=== PATIENT | female | born 1990 | race Caucasian/White ===

== ENCOUNTER 2016-04-25 10:54 | Emergency (ER) | payer MEDICAID ==
[~2016-04-25] VITALS: Ht 154.9 cm; Wt 118.0 kg
[~2016-04-25 10:54] MED LIST: LORA-474 PO; METF500T PO; MUPI2OIN TOPICAL; PREG25 PO; SERT-132 PO; SULF1TAB23 PO
[2016-04-25 10:57] VITALS: BP 142/87; PULSE 72; RESP 15; TEMP 98; O2SAT 98
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
[2016-04-25 12:28] VITALS: BP 122/61; PULSE 64; RESP 16; TEMP 98.5; O2SAT 94
[2016-04-25 12:55] LABS: AUTOMATED NEUTROPHIL # 5.9 TH/MM3 (1.8-7.7); BASOPHIL # 0.1 TH/MM3 (0-0.2); EOSINOPHIL # 0.2 TH/MM3 (0-0.4); EOSINOPHIL % 2.6 % (0.0-4.0); HEMATOCRIT 43.2 % (35.0-46.0); HEMO FLAGS DIFF FINAL; LYMPHOCYTE # 2.3 TH/MM3 (1.0-4.8); MEAN CELL VOLUME 90.5 FL (80.0-100.0); MEAN CORPUSCULAR HEMOGLOBIN 30.3 PG (27.0-34.0); MEAN CORPUSCULAR HGB CONC 33.5 % (32.0-36.0); MONO % 7.6 % (0.0-8.0); NEUT % 63.8 % (16.0-70.0); PLATELET COUNT 245 TH/MM3 (150-450); RED BLOOD COUNT 4.78 MIL/MM3 (4.00-5.30); RED CELL DISTRIBUTION WIDTH 12.9 % (11.6-17.2); WHITE BLOOD COUNT 9.3 TH/MM3 (4.0-11.0)
[2016-04-25 13:03] LABS: ANION GAP 7 MEQ/L (5-15); BICARBONATE 29.7 MEQ/L (21.0-32.0); BLOOD UREA NITROGEN 6 MG/DL (7-18); CHLORIDE 105 MEQ/L (98-107); GLOMERULAR FILTRATION RATE 100 ML/MIN (>89); POTASSIUM 3.6 MEQ/L (3.5-5.1); SODIUM (NA) 142 MEQ/L (136-145)
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
[2016-04-25 14:46] LABS: AMPHETAMINE, URINE NEG (NEG); BARBITURATES, URINE NEG (NEG); COCAINE, URINE NEG (NEG)
[2016-04-25] MEDS ORDERED: LORA-474 PO (17:30)
[2016-04-28] MEDS ORDERED: CLOT1CRE6 TOPICAL (13:59)
[2016-04-28] MEDS ORDERED: ACE-33 (14:01)
[2016-04-28] MEDS ORDERED: TYLETAB34 PO (14:11)
[2016-05-23] MEDS ORDERED: TERB250T4 PO (09:41)
[2016-07-05] MEDS ORDERED: ONDA4TAB7 SL (09:48)
[2016-07-15] MEDS ORDERED: PYRI25TA2 PO (10:51)
[2016-07-15] MEDS ORDERED: UNIS25TA2 PO (10:51)
[2016-07-15] MEDS ORDERED: ZANT150T2 PO (11:00)
[2016-07-21] MEDS ORDERED: PROC10TA PO (10:38)
[2016-08-15] MEDS ORDERED: ZOFR8TAB PO (16:05)
[2016-08-17] MEDS ORDERED: DEXA4TAB PO (11:58)
[2016-08-17] MEDS ORDERED: DEXA4INJ9 IM (11:59)
[2016-09-20] MEDS ORDERED: METR500T10 PO (12:21)
[2016-09-20] MEDS ORDERED: PRENTAB60 (15:46)
== END 2016-04-25 15:22 | disposition home or self-care (01) ==
LOC: NEPJ 10:54
DX: F43.23 Adjustment disorder with mixed anxiety and depressed mood (principal); F12.90 Cannabis use, unspecified, uncomplicated
CPT/HCPCS: 80048; 80307; 80320; 84703; 85025; 99283

== ENCOUNTER 2016-07-13 11:35 | Emergency (ER) | payer MEDICAID ==
[~2016-07-13] VITALS: Ht 154.9 cm; Wt 115.0 kg
[~2016-07-13 11:35] MED LIST changes: +ACE-33; -LORA-474 PO; -METF500T PO; -MUPI2OIN TOPICAL; +ONDA4TAB7 SL; -PREG25 PO; -SERT-132 PO; -SULF1TAB23 PO
[2016-07-13 11:37] VITALS: BP 125/70; PULSE 98; RESP 20; TEMP 98.5; O2SAT 100
--- NOTE | 2016-07-13 11:46 | PD ---
Physical Exam Date Seen by Provider: Jul 13, 2016 Time Seen by Provider: 11:42 Narrative Pt is a 25 year old female presenting to the ED with abdominal cramping. Pt is approximately 8 weeks . No vaginal spotting or discharge. Pt denies any urinary symptoms. A3. Pt has been seen by prestidigitator at [facility]. Pt with hx of premature labor. PMHx significant for lupus. Pt reports pain 10/10 and states it's cramping in nature. VSS, awaiting bed placement. Data Data Last Documented VS Vital Signs Date Time Temp Pulse Resp B/P Pulse Ox O2 Delivery O2 Flow Rate FiO2 07/13/16 11:37 98.5 98 20 125/70 100 Room Air MDM Supervised Visit with ROMAN: Adriana Ying Jul 13, 2016 11:46
--- NOTE | 2016-07-13 13:35 | PD ---
HPI Chief Complaint: Related Problem Time Seen by Provider: 13:27 Travel History International Travel<30 days: No Contact w/Intl Traveler<30days: No Traveled to known affect area: No History of Present Illness HPI The patient was seen and examined in the presence of the nurse. This patient is complaining of low central pelvic cramping. Duration 2 days. Severity is mild to moderate. No bleeding or discharge or fever. She is recently found out she is . She estimates about a week's. She does have care , has not had an ultrasound. PFSH Past Medical History Anxiety: Yes Diminished Hearing: No Genitourinary: Yes (UTI 05/01/11) Immune Disorder: Yes (LUPUS) Reproductive: Yes Immunizations Current: Yes Tetanus Vaccination: > 5 Years Influenza Vaccination: No ?: LMP: APRIL : 5 Para: 2 Miscarriage: 3 : 0 Past Surgical History Section: Yes (X 2) Gynecologic Surgery: Yes (C/SECTION X 2 ) Tonsillectomy: Yes Other Surgery: Yes (LEFT LEG SURGERY- MRSA 16 YEARS OLD) Social History Alcohol Use: Yes (RARELY ) Tobacco Use: Yes (1/2 PPD) Substance Use: Yes (MARIJUANA - last smoked 3x days ago. ) Allergies-Medications (Allergen,Severity, Reaction): Coded Allergies: Gabapentin (Verified Adverse Reaction, Mild, Mouth Sores, 07/13/16) Per pt. Reported Meds & Prescriptions Reported Meds & Active Scripts Active No Active Prescriptions or Reported Medications Review of Systems General / Constitutional: No: Fever Eyes: No: Visual changes HENT: No: Headaches Cardiovascular: No: Chest Pain or Discomfort Respiratory: No: Shortness of Breath Gastrointestinal: No: Abdominal Pain Genitourinary: Positive: Pelvic Pain, No: Dysuria Musculoskeletal: No: Pain Skin: No Rash Neurologic: No: Weakness Psychiatric: No: Depression Endocrine: No: Polydipsia Hematologic/Lymphatic: No: Easy Bruising Physical Exam Narrative GENERAL: Well-nourished, well-developed patient in no apparent distress. SKIN: Focused skin assessment reveals no rash and nodules. Skin is Warm and dry. HEAD: Atraumatic. Normocephalic. EYES: Pupils equal and round. No scleral icterus. No injection or drainage. ENT: No nasal bleeding or discharge. Mucous membranes pink and moist. NECK: Trachea midline. No JVD. CARDIOVASCULAR: Regular rate and rhythm. No murmur appreciated. RESPIRATORY: No accessory muscle use. Clear to auscultation. Breath sounds equal bilaterally. GASTROINTESTINAL: Abdomen soft, obese, non-tender, nondistended. Hepatic and splenic margins not palpable. MUSCULOSKELETAL: No obvious deformities. No clubbing. No cyanosis. No edema. NEUROLOGICAL: Awake and alert. No obvious cranial nerve deficits. Motor grossly within normal limits. Normal speech. PSYCHIATRIC: Appropriate mood and affect; insight and judgment normal. Data Data Last Documented VS Vital Signs Date Time Temp Pulse Resp B/P Pulse Ox O2 Delivery O2 Flow Rate FiO2 07/13/16 13:23 17 07/13/16 11:37 98.5 98 125/70 100 Room Air Orders Urinalysis - C+S If Indicated (07/13/16 13:27) Labs Laboratory Tests Test 07/13/16 13:30 Urine Color YELLOW Urine Turbidity CLEAR Urine pH 7.5 Urine Specific [place] 1.015 Urine Protein NEG mg/dL Urine Glucose (UA) NEG mg/dL Urine Ketones NEG mg/dL Urine Occult Blood NEG Urine Nitrite NEG Urine Bilirubin NEG Urine Urobilinogen LESS THAN 2.0 MG/DL Urine Leukocyte Esterase NEG Urine RBC LESS THAN 1 /hpf Urine WBC 1 /hpf Urine Squamous Epithelial 4 /hpf Cells Urine Bacteria RARE /hpf Microscopic Urinalysis Comment CULT NOT INDICATED MDM Medical Decision Making Medical Screen Exam Complete: Yes Emergency Medical Condition: Yes Medical Record Reviewed: Yes Differential Diagnosis Ectopic , threatened , miscarriage Narrative Course I have reviewed the patient's electronic medical record. I did a bedside transabdominal ultrasound. While I can't identify individual parts I can see enough to rule out ectopic . She has intrauterine . Patient's abdomen is soft and benign and nontender. She looks asymptomatic now. Urinalysis is normal Stable for outpatient OB follow-up Diagnosis Primary Impression: Pelvic pain affecting in first trimester, antepartum Additional Instructions: I have reviewed the patient's electronic medical record. Med/Other Pt SpecificInfo: Other Scripts No Active Prescriptions or Reported Meds Disposition: DISCHARGE HOME Condition: Stable Tiago Rouse MD Jul 13, 2016 13:35
[2016-07-13 13:48] LABS: BACTERIA, URINE RARE /hpf; BLOOD, URINE NEG (NEG); GLUCOSE,URINE NEG (NEG); KETONE, URINE NEG (NEG); NITRITE,URINE NEG (NEG); PH, URINE 7.5 (5.0-8.5); SQUAMOUS EPITHELIAL CELL URINE 4 /hpf (0-5); URINE COLOR YELLOW (YELLW/STRAW)
[2016-07-13 13:49] LABS: COMMENT (UR) CULT NOT INDICATED; CULTURE IF INDICATED CULT NOT INDICATED
[2016-07-13 14:35] VITALS: BP 120/68; TEMP 98
[2016-07-15] MEDS ORDERED: UNIS25TA2 PO (10:51)
[2016-07-15] MEDS ORDERED: PYRI25TA2 PO (10:51)
[2016-07-15] MEDS ORDERED: ZANT150T2 PO (11:00)
[2016-07-21] MEDS ORDERED: PROC10TA PO (10:38)
[2016-08-15] MEDS ORDERED: ZOFR8TAB PO (16:05)
[2016-08-17] MEDS ORDERED: DEXA4TAB PO (11:58)
[2016-08-17] MEDS ORDERED: DEXA4INJ9 IM (11:59)
[2016-09-20] MEDS ORDERED: METR500T10 PO (12:21)
[2016-09-20] MEDS ORDERED: PRENTAB60 (15:46)
== END 2016-07-13 14:35 | disposition home or self-care (01) ==
LOC: NEPD 11:35
DX: O26.891 Other specified pregnancy related conditions, first trimester (principal); O99.331 Smoking (tobacco) complicating pregnancy, first trimester; O99.321 Drug use complicating pregnancy, first trimester; O99.111 Other diseases of the blood and blood-forming organs and certain disorders involving the immune mechanism complicating pregnancy, first trimester; R10.2 Pelvic and perineal pain; M32.10 Systemic lupus erythematosus, organ or system involvement unspecified; Z3A.08 8 weeks gestation of pregnancy
CPT/HCPCS: 81001; 99284

== ENCOUNTER → 2016-07-28 | Outpatient (CLI) | payer MEDICAID ==
[~2016-07-28] MED LIST changes: -ACE-33; +BACT800T5 PO; +CEPH-460 PO; +DEXA4INJ9 IM; +DEXA4TAB PO; +METR500T10 PO; +NITR1CAP36 PO; -ONDA4TAB7 SL; +PRENTAB60; +PROC10TA PO; +PYRI25TA2 PO; +UNIS25TA2 PO; +ZANT150T2 PO; +ZOFR4TAB PO; +ZOFR8TAB PO
== END ==
LOC: HPND 07:48
PROVIDERS: ATTEND Family Medicine
DX: O99.211 Obesity complicating pregnancy, first trimester (principal); O99.89 Other specified diseases and conditions complicating pregnancy, childbirth and the puerperium; M32.9 Systemic lupus erythematosus, unspecified; E66.01 Morbid (severe) obesity due to excess calories; O34.219 Maternal care for unspecified type scar from previous cesarean delivery; O26.841 Uterine size-date discrepancy, first trimester; O99.331 Smoking (tobacco) complicating pregnancy, first trimester; Z3A.10 10 weeks gestation of pregnancy; Z68.42 Body mass index [BMI] 45.0-49.9, adult
CPT/HCPCS: 76801; 76817

== ENCOUNTER 2016-08-14 13:50 | Emergency (ER) | payer MEDICAID ==
[~2016-08-14] VITALS: Ht 154.9 cm; Wt 113.0 kg
[~2016-08-14 13:50] MED LIST changes: -BACT800T5 PO; -CEPH-460 PO; -DEXA4INJ9 IM; -DEXA4TAB PO; -METR500T10 PO; -NITR1CAP36 PO; -PRENTAB60; -ZOFR4TAB PO; -ZOFR8TAB PO
[2016-08-14 13:52] VITALS: BP 133/78; PULSE 104; RESP 20; TEMP 97.8; O2SAT 100
[2016-08-14] MEDS ORDERED: SODIUM CHLOR 0.9% 1000 ML INJ 1,000 ML IV SCH ×2 (14:11→16:10)
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
[2016-08-14] MEDS ORDERED: ZOFR4TAB PO (14:38)
--- NOTE | 2016-08-14 15:07 | PD ---
Data Data Last Documented VS Vital Signs Date Time Temp Pulse Resp B/P Pulse Ox O2 Delivery O2 Flow Rate FiO2 08/14/16 13:52 97.8 104 20 133/78 100 Room Air Orders Basic Metabolic Panel (Bmp) (08/14/16 14:11) Beta Hcg (Quant/Titer) (08/14/16 14:11) Complete Blood Count With Diff (08/14/16 14:11) Urinalysis - C+S If Indicated (08/14/16 14:11) Iv Access Insert/Monitor (08/14/16 14:11) Sodium Chlor 0.9% 1000 Ml Inj (Ns 1000 M (08/14/16 14:11) Electrocardiogram (08/14/16 14:11) Ed Poc Ultrasound (08/14/16 ) MDM Supervised Visit with ROMAN: Yes Narrative Course I, Dr. Galicia, have reviewed the advance practice practitioner's documentation and am in agreement, met with the patient face to face, made the diagnosis, and the medical decision making was done by me. See his note for further details. Procedures Procedure Narrative Bedside transabdominal ultrasound: Using the curvilinear ultrasound probe, a transabdominal ultrasound was performed by me and shows an IUP with a heart rate of 160 bpm. Deandre Galicia MD August 14, 2016 15:07
[2016-08-14 15:44] LABS: AUTOMATED NEUTROPHIL # 5.7 TH/MM3 (1.8-7.7); BASOPHIL % 0.3 % (0.0-2.0); EOSINOPHIL # 0.1 TH/MM3 (0-0.4); HEMATOCRIT 37.5 % (35.0-46.0); HEMO FLAGS DIFF FINAL; LYMPH % 24.7 % (9.0-44.0); LYMPHOCYTE # 2.1 TH/MM3 (1.0-4.8); MEAN CELL VOLUME 88.7 FL (80.0-100.0); MEAN CORPUSCULAR HEMOGLOBIN 30.7 PG (27.0-34.0); MEAN CORPUSCULAR HGB CONC 34.6 % (32.0-36.0); MONO % 6.8 % (0.0-8.0); NEUT % 67.2 % (16.0-70.0); PLATELET COUNT 219 TH/MM3 (150-450); RED BLOOD COUNT 4.23 MIL/MM3 (4.00-5.30); RED CELL DISTRIBUTION WIDTH 12.3 % (11.6-17.2); WHITE BLOOD COUNT 8.5 TH/MM3 (4.0-11.0)
[2016-08-14 16:06] LABS: BICARBONATE 25.2 MEQ/L (21.0-32.0); POTASSIUM 3.6 MEQ/L (3.5-5.1)
[2016-08-14 17:07] LABS: BLOOD, URINE NEG (NEG); COMMENT (UR) CULT NOT INDICATED; CULTURE IF INDICATED CULT NOT INDICATED; GLUCOSE,URINE NEG (NEG); KETONE, URINE 40 mg/dL (NEG); MUCUS URINE FEW /lpf (OCC); NITRITE,URINE NEG (NEG); SQUAMOUS EPITHELIAL CELL URINE 2 /hpf (0-5); URINE COLOR YELLOW (YELLW/STRAW)
[2016-08-14] MEDS ORDERED: CEPH-460 PO (17:13)
--- NOTE | 2016-08-15 13:02 | EKG ---
Date Performed: 08/14/2016 Time Performed: 14:22:13 PTAGE: 25 years EKG: Sinus rhythm NORMAL ECG NO PREVIOUS TRACING DOCTOR: Dustin Mathews Interpretating Date/Time 08/15/2016 13:01:00
[2016-08-15] MEDS ORDERED: ZOFR8TAB PO (16:05)
[2016-08-17] MEDS ORDERED: DEXA4TAB PO (11:58)
[2016-08-17] MEDS ORDERED: DEXA4INJ9 IM (11:59)
[2016-09-20] MEDS ORDERED: METR500T10 PO (12:21)
[2016-09-20] MEDS ORDERED: PRENTAB60 (15:46)
== END 2016-08-14 18:09 | disposition home or self-care (01) ==
LOC: NEPD 13:50
DX: O99.89 Other specified diseases and conditions complicating pregnancy, childbirth and the puerperium (principal); E86.0 Dehydration; R55 Syncope and collapse; R73.03 Prediabetes; O23.41 Unspecified infection of urinary tract in pregnancy, first trimester; F17.200 Nicotine dependence, unspecified, uncomplicated; Z86.2 Personal history of diseases of the blood and blood-forming organs and certain disorders involving the immune mechanism; Z86.59 Personal history of other mental and behavioral disorders; Z3A.12 12 weeks gestation of pregnancy
CPT/HCPCS: 80048; 81001; 84702; 85025; 93005; 96360; 96361; 99284; J7030

== ENCOUNTER → 2016-08-23 | Outpatient (CLI) | payer MEDICAID ==
[~2016-08-23] MED LIST changes: +BACT800T5 PO; +CEPH-460 PO; +DEXA4TAB PO; +METR500T10 PO; +NITR1CAP36 PO; +PRENTAB60; -UNIS25TA2 PO; +ZOFR4TAB PO; +ZOFR8TAB PO
== END ==
LOC: HPND 12:46
PROVIDERS: ATTEND Family Medicine
DX: O99.89 Other specified diseases and conditions complicating pregnancy, childbirth and the puerperium (principal); M32.9 Systemic lupus erythematosus, unspecified; O99.211 Obesity complicating pregnancy, first trimester; E66.01 Morbid (severe) obesity due to excess calories; Z68.42 Body mass index [BMI] 45.0-49.9, adult; Z3A.00 Weeks of gestation of pregnancy not specified
CPT/HCPCS: 36416; 76813

== ENCOUNTER 2016-08-25 20:09 | Emergency (ER) | payer MEDICAID, OTHER ==
[~2016-08-25] VITALS: Ht 170.2 cm; Wt 86.0 kg
[~2016-08-25 20:09] MED LIST changes: -BACT800T5 PO; -METR500T10 PO; -NITR1CAP36 PO; -PRENTAB60
--- NOTE | 2016-08-25 20:28 | PD ---
HPI Chief Complaint: [employer] Problem/Complaint Time Seen by Provider: 20:27 Travel History International Travel<30 days: No Contact w/Intl Traveler<30days: No History of Present Illness HPI 25-year-old 14 week (confirmed by ultrasound) female with PMH of lupus presents to the ED by EMS for one-day history of approximately 20 episodes of NBNB vomiting. Patient states she's been unable to keep anything down despite PO compazine. Also endorses dysuria and lower abdominal cramping. She denies fever, chills, decreased appetite, changes in bowel habits, vaginal bleeding or vaginal discharge. She endorses feeling movements today. She states that she had a ultrasound 2 days ago confirming the sex of the baby. She states that she completed a course of by mouth antibiotics for UTI about a week ago. She also states that she's been taking oral prednisone for lupus flare since discharge. She states that she decided to stop taking them 3 days ago as she was concerned about the effects on the baby. PFSH Past Medical History Anxiety: Yes Diabetes: Yes (BORDERLINE ) Diminished Hearing: No Genitourinary: Yes (UTI 05/01/11) Immune Disorder: Yes (LUPUS) Reproductive: Yes Immunizations Current: Yes : 5 Para: 2 Miscarriage: 3 : 0 Past Surgical History Section: Yes (X 2) Gynecologic Surgery: Yes (C/SECTION X 2 ) Tonsillectomy: Yes Other Surgery: Yes (LEFT LEG SURGERY- MRSA 16 YEARS OLD) Social History Alcohol Use: Yes (RARELY ) Tobacco Use: Yes (1/2 PPD) Substance Use: Yes (MARIJUANA - last smoked 3x days ago. ) Allergies-Medications (Allergen,Severity, Reaction): Coded Allergies: Gabapentin (Verified Adverse Reaction, Mild, Mouth Sores, 08/24/16) Per pt. Reported Meds & Prescriptions Reported Meds & Active Scripts Active Bactrim DS (Sulfamethoxazole-Trimethoprim) 800-160 Mg Tab 1 Tab PO BID Dexamethasone 4 Mg Tab 4 Mg PO DIRECTED Zofran (Ondansetron HCl) 8 Mg Tab 8 Mg PO TID Keflex (Cephalexin) 500 Mg Cap 500 Mg PO Q12H 10 Days Prochlorperazine Maleate 10 Mg Tab 10 Mg PO Q6H PRN Zantac (Ranitidine HCl) 150 Mg Tab 150 Mg PO BID Pyridoxine (Pyridoxine HCl) 25 Mg Tab 12 Mg PO DAILY Take half a tab 1-2 times a day. (Cut a 25mg tab in half) Reported Zofran (Ondansetron HCl) 4 Mg Tab 4 Mg PO Q6HR PRN Review of Systems Except as stated in HPI: all other systems reviewed are Neg Physical Exam Narrative GENERAL: Well-nourished, well-developed obese white female in no acute distress. SKIN: Focused skin assessment warm/dry. HEAD: Normocephalic. EYES: No scleral icterus. No injection or drainage. NECK: Supple, trachea midline. No JVD or lymphadenopathy. CARDIOVASCULAR: Regular rate and rhythm without murmurs, gallops, or rubs. RESPIRATORY: Breath sounds clear and equal bilaterally. No accessory muscle use. GASTROINTESTINAL: Abdomen soft, non-tender, nondistended. Active bowel sounds. MUSCULOSKELETAL: No cyanosis, or edema. Patient is ambulatory and walks with a normal gait. BACK: Nontender without obvious deformity. No CVA tenderness. Data Data Last Documented VS Vital Signs Date Time Temp Pulse Resp B/P Pulse Ox O2 Delivery O2 Flow Rate FiO2 08/25/16 20:30 98.7 85 16 137/72 Orders Complete Blood Count With Diff (08/25/16 20:40) Comprehensive Metabolic Panel (08/25/16 20:40) Urinalysis - C+S If Indicated (08/25/16 20:40) Iv Access Insert/Monitor (08/25/16 20:40) Ecg Monitoring (08/25/16 20:40) Sodium Chlor 0.9% 1000 Ml Inj (Ns 1000 M (08/25/16 20:40) Ed Urine Pregnancytest Poc (08/25/16 20:40) Ed Poc Ultrasound (08/25/16 ) Acetaminophen (Tylenol) (08/25/16 22:15) Urine Culture (08/25/16 21:11) Potassium Chloride (Kcl) (08/25/16 22:30) Sulfamet-Trimeth Ds 800-160 Mg (Bactrim (08/25/16 22:30) Labs Laboratory Tests Test 08/25/16 08/25/16 20:30 21:11 White Blood Count 13.0 TH/MM3 Red Blood Count 4.00 MIL/MM3 Hemoglobin 12.0 GM/DL Hematocrit 35.7 % Mean Corpuscular Volume 89.2 FL Mean Corpuscular Hemoglobin 29.9 PG Mean Corpuscular Hemoglobin 33.5 % Concent Red Cell Distribution Width 12.1 % Platelet Count 207 TH/MM3 Mean Platelet Volume 10.3 FL Neutrophils (%) (Auto) 75.1 % Lymphocytes (%) (Auto) 17.1 % Monocytes (%) (Auto) 6.6 % Eosinophils (%) (Auto) 1.0 % Basophils (%) (Auto) 0.2 % Neutrophils # (Auto) 9.7 TH/MM3 Lymphocytes # (Auto) 2.2 TH/MM3 Monocytes # (Auto) 0.9 TH/MM3 Eosinophils # (Auto) 0.1 TH/MM3 Basophils # (Auto) 0.0 TH/MM3 CBC Comment DIFF FINAL Differential Comment Sodium Level 137 MEQ/L Potassium Level 3.2 MEQ/L Chloride Level 103 MEQ/L Carbon Dioxide Level 23.3 MEQ/L Anion Gap 11 MEQ/L Blood Urea Nitrogen 4 MG/DL Creatinine 0.40 MG/DL Estimat Glomerular Filtration 194 ML/MIN Rate Random Glucose 79 MG/DL Calcium Level 8.9 MG/DL Total Bilirubin 0.3 MG/DL Aspartate Amino Transf 27 U/L (AST/SGOT) Alanine Aminotransferase 32 U/L (ALT/SGPT) Alkaline Phosphatase 54 U/L Total Protein 6.3 GM/DL Albumin 2.8 GM/DL Urine Color ASHLYN Urine Turbidity HAZY Urine pH 7.0 Urine Specific Holstein 1.031 Urine Protein 100 mg/dL Urine Glucose (UA) NEG mg/dL Urine Ketones 150 mg/dL Urine Occult Blood NEG Urine Nitrite POS Urine Bilirubin NEG Urine Urobilinogen 4.0 MG/DL Urine Leukocyte Esterase TRACE Urine RBC 1 /hpf Urine WBC 16 /hpf Urine Squamous Epithelial 9 /hpf Cells Urine Bacteria MOD /hpf Urine Mucus MANY /lpf Microscopic Urinalysis Comment CULTURE INDICATED MDM Medical Decision Making Medical Screen Exam Complete: Yes Emergency Medical Condition: Yes Differential Diagnosis Hyperemesis gravidarum versus nausea and vomiting versus dehydration versus electrolyte abnormality versus threatened versus UTI versus STD versus other Narrative Course 25-year-old 14 week (confirmed by ultrasound) female with PMH of lupus presents to the ED for one-day history of approximately 20 episodes of NBNB vomiting. Vomiting despite PO compazine. Also endorses dysuria and lower abdominal cramping. She denies fever, chills, decreased appetite, changes in bowel habits, vaginal bleeding or vaginal discharge. She endorses feeling movements today. Endorses recent treatment for UTI with Keflex. Also endorses aborting a course of oral prednisone for lupus flare about 3 days ago. Vitals reviewed. Physical exam reveals an obese white female in no acute distress. Abdominal exam is benign. Bedside ultrasound reveals movement and heart rate in the 130s. She was administered Zofran by EMS en route. Patient was administered 1 L normal saline. CBC: WBC 13.0. Hemoglobin 12. CMP: Potassium 3.2 UA: Hazy, nitrite positive, trace leukocyte esterase, 16 WBCs, moderate bacteria. Culture pending. Patient was administered 20 mEq of potassium chloride by mouth. No further episodes of vomiting in the ED. She did complain of a headache and was administered Tylenol by mouth. Patient is sleeping on recheck, reports improvement of her headache symptoms. The patient was provided prescription for Bactrim DS twice a day 3 days. First dose administered in the ED. Gestational age 14+ weeks by ultrasound. She is instructed to take all medication as prescribed, follow up with the professional soccer player, return to the ED for worsening of symptoms. She indicated understanding of instructions and is agreeable to the care plan. This patient is stable and discharged home. Procedures Procedure Narrative Emergency Department Pelvic ultrasound was performed with patient consent. The curvilinear probe was used in the transverse and sagittal views within the suprapubic region revealing a single intrauterine . heart rate was 150. 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 Resume at home medications. Take all antibiotics as prescribed, even if your symptoms resolve. Follow-up with your professional soccer player. Return to the ED for any urgent or emergent medical condition. Scripts Sulfamethoxazole-Trimethoprim (Bactrim DS)800-160 Mg Tab1 Tab PO BID #6 TAB Ref 0 Prov:Maria Alejandra Ng MD 08/25/16 Disposition: 01 DISCHARGE HOME Condition: Stable Sania Treadwell Aug 25, 2016 20:27
[2016-08-25 20:30] VITALS: BP 137/72; PULSE 85; RESP 16; TEMP 98.7
[2016-08-25] MEDS ORDERED: SODIUM CHLOR 0.9% 1000 ML INJ 1,000 ML IV ONE (20:40)
[2016-08-25 21:37] LABS: AUTOMATED NEUTROPHIL # 9.7 TH/MM3 (1.8-7.7); BASOPHIL % 0.2 % (0.0-2.0); EOSINOPHIL # 0.1 TH/MM3 (0-0.4); HEMATOCRIT 35.7 % (35.0-46.0); HEMO FLAGS DIFF FINAL; LYMPH % 17.1 % (9.0-44.0); LYMPHOCYTE # 2.2 TH/MM3 (1.0-4.8); MEAN CELL VOLUME 89.2 FL (80.0-100.0); MEAN CORPUSCULAR HEMOGLOBIN 29.9 PG (27.0-34.0); MEAN CORPUSCULAR HGB CONC 33.5 % (32.0-36.0); MONO % 6.6 % (0.0-8.0); NEUT % 75.1 % (16.0-70.0); PLATELET COUNT 207 TH/MM3 (150-450); RED CELL DISTRIBUTION WIDTH 12.1 % (11.6-17.2)
[2016-08-25 21:57] LABS: BACTERIA, URINE MOD /hpf; BLOOD, URINE NEG (NEG); COMMENT (UR) CULTURE INDICATED; CULTURE IF INDICATED CULTURE INDICATED; GLUCOSE,URINE NEG (NEG); KETONE, URINE 150 mg/dL (NEG); MUCUS URINE MANY /lpf (OCC); SQUAMOUS EPITHELIAL CELL URINE 9 /hpf (0-5)
[2016-08-25 22:05] LABS: ALT (GPT) 32 U/L (10-53)
[2016-08-25 22:08] LABS: NITRITE,URINE POS (NEG); URINE COLOR AMBER (YELLW/STRAW)
[2016-08-25 22:08] LABS: ALKALINE PHOSPHATASE 54 U/L (45-117); TOTAL BILIRUBIN ADULT 0.3 MG/DL (0.2-1.0)
[2016-08-25 22:14] LABS: ANION GAP 11 MEQ/L (5-15); AST (GOT) 27 U/L (15-37); BICARBONATE 23.3 MEQ/L (21.0-32.0); BLOOD UREA NITROGEN 4 MG/DL (7-18); CHLORIDE 103 MEQ/L (98-107); GLOMERULAR FILTRATION RATE 194 ML/MIN (>89); POTASSIUM 3.2 MEQ/L (3.5-5.1); SODIUM (NA) 137 MEQ/L (136-145)
[2016-08-25] MEDS ORDERED: ACETAMINOPHEN 325 MG TAB PO ONE (22:15)
[2016-08-25] MEDS ORDERED: BACT800T5 PO (22:22)
[2016-08-25] MEDS ORDERED: SULFAMETHOXAZOLE-TRIMETHOPRIM DS 800-160 MG TAB PO ONE (22:30)
[2016-08-25] MEDS ORDERED: POTASSIUM CHLORIDE 20 MEQ CONTROLLED RELEASE TAB PO ONE (22:30)
[2016-08-25 22:45] VITALS: BP 135/77
[2016-09-20] MEDS ORDERED: METR500T10 PO (12:21)
[2016-09-20] MEDS ORDERED: PRENTAB60 (15:46)
== END 2016-08-25 22:45 | disposition home or self-care (01) ==
LOC: NEPC 20:09
DX: O23.41 Unspecified infection of urinary tract in pregnancy, first trimester (principal); O26.892 Other specified pregnancy related conditions, second trimester; O99.112 Other diseases of the blood and blood-forming organs and certain disorders involving the immune mechanism complicating pregnancy, second trimester; R11.2 Nausea with vomiting, unspecified; Z86.2 Personal history of diseases of the blood and blood-forming organs and certain disorders involving the immune mechanism; Z86.59 Personal history of other mental and behavioral disorders; Z3A.14 14 weeks gestation of pregnancy; D68.62 Lupus anticoagulant syndrome
CPT/HCPCS: 80053; 81001; 84703; 85025; 87086; 96360; 99284; J7030

== ENCOUNTER 2016-09-12 10:16 | Emergency (ER) | payer MEDICAID, OTHER ==
[~2016-09-12 10:16] MED LIST changes: +BACT800T5 PO
[2016-09-12 10:34] VITALS: RESP 18; TEMP 98.1
[2016-09-12 10:35] VITALS: BP 123/69; PULSE 110
--- NOTE | 2016-09-12 10:36 | PD ---
HPI Chief Complaint Abdominal pain Date Seen: Sep 12, 2016 (Kimberly Ruelas MD R2) Travel History International Travel<30 Days: No Contact w/Intl Traveler<30Days: No (Kimberly Ruelas MD R2) History of Present Illness HPI Patient is a 25 year old at 16-4/7 weeks gestation who presents today for abdominal pain. The pain is described as cramping that started 2 days ago and has progressively worsened. The pain is located in the abdominal/pelvic region and radiates to her back. She denies any vaginal bleeding, discharge, dysuria, or hematuria. care with Dr. Loyola. (Kimberly Ruelas MD R2) History Past Medical History Narrative Medical Lupus, not taking any medications due to She reports MRSA of the left thigh as a child (Kimberly Ruelas MD R2) Obstetric History Obstetric History OB history: Ab3. She had 3 miscarriages. Age 11 with her first menses. * Initial primary was due to post dates. Was initially induced but then developed distress * Repeat was indicated due to back to back pregnancies less than a year and concern for uterine rupture. Went into labor at around 36 weeks Previously delivered in [place] (Kimberly Ruelas MD R2) Past Surgical History Narrative Surgical x 2 (Kimberly Ruelas MD R2) Family History Narrative Family History Son has epilepsy (Kimberly Ruelas MD R2) Social History Alcohol Use: No Tobacco Use: No Substance Abuse: No (Kimberly Ruelas MD R2) Allergies-Medications (Allergen,Severity, Reaction): Coded Allergies: Gabapentin (Verified Adverse Reaction, Mild, Mouth Sores, 08/24/16) Per pt. Home Meds Active Scripts Nitrofurantoin Macrocrystal 100 Mg [id number] Mg PO BID #14 CAP Ref 0 Prov:Kimberly Ruelas MD R2 09/12/16 Sulfamethoxazole-Trimethoprim (Bactrim DS)800-160 Mg Tab1 Tab PO BID #6 TAB Ref 0 Prov:Maria Alejandra Ng MD 08/25/16 Dexamethasone 4 Mg Tab4 Mg PO DIRECTED #13 TAB Ref 0 Prov:Leon Ortega MD R3 08/17/16 Ondansetron (Zofran)8 Mg Tab8 Mg PO TID #30 TAB Ref 0 Prov:Mary Howell MD R3 08/15/16 Cephalexin (Keflex)500 Mg [id number] Mg PO Q12H 10 Days Prov:Deandre Galicia MD 08/14/16 Prochlorperazine Maleate 10 Mg Tab10 Mg PO Q6H PRN (NAUSEA OR VOMITING) #120 TAB Ref 0 Prov:Leon Ortega MD R3 07/21/16 Ranitidine (Zantac)150 Mg [id number] Mg PO BID #60 TAB Ref 0 Prov:Savanna Loyola MD R2 07/15/16 Pyridoxine 25 Mg Tab12 Mg PO DAILY #30 TAB Ref 0 Take half a tab 1-2 times a day. (Cut a 25mg tab in half) Prov:Savanna Loyola MD R2 07/15/16 Reported Medications Ondansetron (Zofran)4 Mg Tab4 Mg PO Q6HR PRN (NAUSEA OR VOMITING) Ref 0 08/14/16 Review of Systems Except as stated in HPI: all other systems reviewed are Neg General / Constitutional: No: Fever, Chills Eyes: No: Visual changes HENT: No: Headaches Cardiovascular: No: Chest Pain or Discomfort Respiratory: No: Short of Breath Gastrointestinal: Nausea, Abdominal Pain, No: Loss of Appetite Genitourinary: Pelvic Pain, No: Dysuria, Hematuria, Discharge, Vaginal Bleeding Musculoskeletal: No: Edema Neurologic: No: Headache Psychiatric: No: Substance Abuse (Kimberly Ruelas MD R2) Physical Exam Narrative GENERAL: Well-nourished, well-developed patient. SKIN: Warm and dry. HEAD: Normocephalic and atraumatic. EYES: No scleral icterus. No injection or drainage. ENT: No nasal drainage noted. Mucous membranes pink. Airway patent. NECK: Supple, trachea midline. No JVD. CARDIOVASCULAR: Regular rate and rhythm without murmurs, gallops, or rubs. RESPIRATORY: Breath sounds equal bilaterally. No accessory muscle use. ABDOMEN/GI: Abdomen soft, tender to palpation in RLQ, rebound tenderness, positive straight leg raise, bowel sounds present, no guarding Gravid to 16 weeks size GENITOURINARY: FHT's: 156 EXTREMITIES: No cyanosis or edema. BACK: Nontender without obvious deformity. No CVA tenderness. NEUROLOGICAL: Awake and alert. Motor and sensory grossly within normal limits. Normal speech. (Kimberly Ruelas MD R2) Data Data Vital Signs Reviewed: Yes Orders Vital Signs (Adult) .ON ADMISSION (09/12/16 10:34) ^ Labor Status (09/12/16 10:34) Urinalysis - C+S If Indicated (09/12/16 10:34) ^ Hydration (09/12/16 10:34) (Kimberly Ruelas MD R2) MDM Medical Record Reviewed: Yes Narrative Course / MDM 25 year old at 16-4/7 weeks gestation. 1. IUP- FHT 156, reassuring. 2. Abdominal pain- ddx includes acute cystitis vs appendicitis vs round ligament pain. Obtain UA and CBC. dw Dr. Rey Addendum: CBC wnl UA significant for moderate leuk esterace, positive nitrites, 11 wbcs, and moderate bacteria. Will treat for acute cystitis with nitrofurantoin 100mg PO BID. (Kimberly Ruelas MD R2) Procedure Narrative UTI discussed with patient cervix closed and firm ok to dc home RX macrobid ( Trevon Rey MD) Disposition: 01 DISCHARGE HOME Condition: Stable Scripts Nitrofurantoin Macrocrystal 100 Mg [id number] Mg PO BID #14 CAP Ref 0 Prov:Kimberly Ruelas MD R2 09/12/16 Kimberly Ruelas MD R2 Sep 12, 2016 10:36 Trevon Rey MD Sep 12, 2016 12:23
[2016-09-12 11:10] LABS: AUTOMATED NEUTROPHIL # 8.4 TH/MM3 (1.8-7.7); BASOPHIL # 0.1 TH/MM3 (0-0.2); BASOPHIL % 0.5 % (0.0-2.0); EOSINOPHIL # 0.1 TH/MM3 (0-0.4); HEMATOCRIT 35.8 % (35.0-46.0); LYMPH % 17.6 % (9.0-44.0); MEAN CELL VOLUME 88.8 FL (80.0-100.0); MEAN CORPUSCULAR HEMOGLOBIN 30.5 PG (27.0-34.0); MEAN CORPUSCULAR HGB CONC 34.3 % (32.0-36.0); NEUT % 74.9 % (16.0-70.0); PLATELET COUNT 211 TH/MM3 (150-450); RED BLOOD COUNT 4.03 MIL/MM3 (4.00-5.30); RED CELL DISTRIBUTION WIDTH 12.3 % (11.6-17.2); WHITE BLOOD COUNT 11.2 TH/MM3 (4.0-11.0)
[2016-09-12 11:14] LABS: HEMO FLAGS AUTO DIFF
[2016-09-12 11:30] LABS: BACTERIA, URINE MOD /hpf; BLOOD, URINE NEG (NEG); COMMENT (UR) CULTURE INDICATED; CULTURE IF INDICATED CULTURE INDICATED; GLUCOSE,URINE NEG (NEG); KETONE, URINE NEG (NEG); MUCUS URINE FEW /lpf (OCC); NITRITE,URINE POS (NEG); SQUAMOUS EPITHELIAL CELL URINE 7 /hpf (0-5); URINE COLOR YELLOW (YELLW/STRAW)
[2016-09-12 11:45] LABS: BANDS 12 % (0-6); MYELOCYTES 4 % (0-0); NEUTROPHIL # MANUAL DIFF 9.5 TH/MM3 (1.8-7.7); POLYS (SEG NEUTROPHILS) 69 % (16-70); WBC DIFF SAMPLE 100
[2016-09-12] MEDS ORDERED: NITR1CAP36 PO ×2 (11:56→12:25)
[2016-09-12 12:10] LABS: PLATELET ESTIMATE SMEAR NORMAL (NORMAL); PLATELET MORPHOLOGY NORMAL (NORMAL); SCAN/DIFF FINAL DIFF MANUAL
[2016-09-20] MEDS ORDERED: METR500T10 PO (12:21)
[2016-09-20] MEDS ORDERED: PRENTAB60 (15:46)
== END 2016-09-12 13:02 | disposition home or self-care (01) ==
LOC: HOBED 10:16
DX: O26.892 Other specified pregnancy related conditions, second trimester (principal); Z3A.16 16 weeks gestation of pregnancy
CPT/HCPCS: 81001; 85007; 85027; 87086; 99283

== ENCOUNTER 2016-09-25 15:36 | Emergency (ER) | payer MEDICAID ==
[~2016-09-25 15:36] MED LIST changes: -BACT800T5 PO; -CEPH-460 PO; -DEXA4TAB PO; +METR500T10 PO; +PRENTAB60; -PROC10TA PO; -PYRI25TA2 PO; -ZANT150T2 PO; -ZOFR4TAB PO; -ZOFR8TAB PO
--- NOTE | 2016-09-25 16:40 | PD ---
HPI Chief Complaint vaginal bleeding Date Seen: Sep 25, 2016 Travel History International Travel<30 Days: No Contact w/Intl Traveler<30Days: No Known Affected Area: No History of Present Illness HPI This is a 25y/o at 18w3d who presents to the [facility] with reports of vaginal bleeding when wiping, about 1/2 toilet paper saturated. She denies sera bleeding or leakage of fluid with reports of some movement flutters. Last intercourse was about 1 week. [facility], but has since been discharged due to behavioral issues, care complicated by: 1. previous 2 c/s 2. PTB at 36w, no on 17P 3. Lupus 4. Tobacco and marijuana abuse in 5. h/o "borderline diabetes" in the , no 1 hr glucose a yet Para: 2 : 5 Miscarriage: 3 History Past Medical History Narrative Medical Lupus, no meds Obstetric History Obstetric History 05/28/12 41w Primary c/s, NRFHT, Male [id number] "Bryan" 05/14/13 36w PTL Repeat c/s Male [id number] "Ermias" sab times 3 Past Surgical History Narrative Surgical [place] teeth extraction age 15 Previous c/s times 2 Social History Alcohol Use: No Tobacco Use: Yes (1.5 ppd, recently quit) Substance Abuse: Yes (Marijuana abuse in ) Allergies-Medications (Allergen,Severity, Reaction): Coded Allergies: Gabapentin (Verified Adverse Reaction, Mild, Mouth Sores, 09/20/16) Per pt. Home Meds Active Scripts Metronidazole 500 Mg [id number] Mg PO BID #14 TAB Ref 0 Prov:Savanna Loyola MD R2 09/20/16 Reported Medications Vit W/ Docusate-Fe Fu ( )1 Tab Tab 09/20/16 Discontinued Reported Medications Ondansetron (Zofran)4 Mg Tab4 Mg PO Q6HR PRN (NAUSEA OR VOMITING) Ref 0 08/14/16 Discontinued Scripts Nitrofurantoin Macrocrystal 100 Mg [id number] Mg PO BID #14 CAP Ref 0 Prov:Trevon Rey MD 09/12/16 Sulfamethoxazole-Trimethoprim (Bactrim DS)800-160 Mg Tab1 Tab PO BID #6 TAB Ref 0 Prov:Maria Alejandra Ng MD 08/25/16 Dexamethasone 4 Mg Tab4 Mg PO DIRECTED #13 TAB Ref 0 Prov:Leon Ortega MD R3 08/17/16 Ondansetron (Zofran)8 Mg Tab8 Mg PO TID #30 TAB Ref 0 Prov:Mary Howell MD R3 08/15/16 Cephalexin (Keflex)500 Mg [id number] Mg PO Q12H 10 Days Prov:Deandre Galicia MD 08/14/16 Prochlorperazine Maleate 10 Mg Tab10 Mg PO Q6H PRN (NAUSEA OR VOMITING) #120 TAB Ref 0 Prov:Leon Ortega MD R3 07/21/16 Ranitidine (Zantac)150 Mg [id number] Mg PO BID #60 TAB Ref 0 Prov:Savanna Loyola MD R2 07/15/16 Pyridoxine 25 Mg Tab12 Mg PO DAILY #30 TAB Ref 0 Take half a tab 1-2 times a day. (Cut a 25mg tab in half) Prov:Savanna Loyola MD R2 07/15/16 Review of Systems Except as stated in HPI: all other systems reviewed are Neg Physical Exam Narrative GENERAL: Well-nourished, well-developed patient. SKIN: Warm and dry. HEAD: Normocephalic and atraumatic. EYES: No scleral icterus. No injection or drainage. ENT: No nasal drainage noted. Mucous membranes pink. Airway patent. NECK: Supple, trachea midline. No JVD. CARDIOVASCULAR: Regular rate and rhythm without murmurs, gallops, or rubs. RESPIRATORY: Breath sounds equal bilaterally. No accessory muscle use. BREASTS: Bilateral exam showed no masses , no retractions, no nipple discharge. ABDOMEN/GI: Abdomen soft, non-tender, bowel sounds present, no rebound, no guarding Gravid to 19 weeks size GENITOURINARY: External Genitalia: intact and normal in appearance SSE: minimal blood tinged discharge, no active bleeding, long cervix, visually closed FHT's: Category:+FH on doppler EXTREMITIES: No cyanosis or edema. BACK: Nontender without obvious deformity. No CVA tenderness. NEUROLOGICAL: Awake and alert. Motor and sensory grossly within normal limits. Five out of 5 muscle strength in all muscle groups. Normal speech. Data Data Vital Signs Reviewed: Yes MDM Narrative Course / MDM 25y/o at 18w3d with episode of vaginal spotting. -no evidence of sab -discussed need for care adilson, resources given for [facility] -aware sab precautions -counseled about 17p benefits in Plan -d/c home -resume PNC adilson -consider 17p -no intercourse until bleeding subsides Diagnosis Diagnosis: Primary Impression: Vaginal bleeding in patient at less than 20 weeks gestation Additional Impression: Previous delivery affecting , antepartum Disposition: 01 DISCHARGE HOME Condition: Good Patient Instructions: General Instructions Ellen Yip MD Sep 25, 2016 16:40
== END 2016-09-25 16:49 | disposition home or self-care (01) ==
LOC: HOBED 15:36
DX: O46.92 Antepartum hemorrhage, unspecified, second trimester (principal); O34.219 Maternal care for unspecified type scar from previous cesarean delivery; Z3A.18 18 weeks gestation of pregnancy
CPT/HCPCS: 99282

== ENCOUNTER → 2016-10-05 | Outpatient (CLI) | payer MEDICAID | LOC: HPND 07:36 | PROVIDERS: ATTEND Family Medicine | DX: O99.89 Other specified diseases and conditions complicating pregnancy, childbirth and the puerperium (principal); M32.9 Systemic lupus erythematosus, unspecified; O26.22 Pregnancy care for patient with recurrent pregnancy loss, second trimester; O99.332 Smoking (tobacco) complicating pregnancy, second trimester; O99.212 Obesity complicating pregnancy, second trimester; E66.01 Morbid (severe) obesity due to excess calories; Z68.42 Body mass index [BMI] 45.0-49.9, adult | CPT/HCPCS: 76811; 76817 ==

== ENCOUNTER → 2016-10-19 | Outpatient (CLI) | payer MEDICAID ==
[~2016-10-19] MED LIST changes: -METR500T10 PO
== END ==
LOC: HPND 07:40
PROVIDERS: ATTEND Obstetrics & Gynecology
DX: O09.212 Supervision of pregnancy with history of pre-term labor, second trimester (principal); O99.89 Other specified diseases and conditions complicating pregnancy, childbirth and the puerperium
CPT/HCPCS: 76815

== ENCOUNTER → 2016-11-02 | Outpatient (CLI) | payer MEDICAID ==
[~2016-11-02] MED LIST changes: +NITR1CAP36 PO
== END ==
LOC: HPND 07:44
PROVIDERS: ATTEND Obstetrics & Gynecology
DX: O09.212 Supervision of pregnancy with history of pre-term labor, second trimester (principal); O99.89 Other specified diseases and conditions complicating pregnancy, childbirth and the puerperium
CPT/HCPCS: 76816; 76825; 76827; 93325

== ENCOUNTER 2016-11-09 12:18 | Emergency (ER) | payer MEDICAID ==
[~2016-11-09 12:18] MED LIST changes: -NITR1CAP36 PO
[2016-11-09 12:35] VITALS: BP 104/60; PULSE 109
--- NOTE | 2016-11-09 12:47 | PD ---
HPI Chief Complaint Contractions Date Seen: Nov 09, 2016 Travel History International Travel<30 Days: No Contact w/Intl Traveler<30Days: No History of Present Illness HPI Patient is a 25 year old at 24-6/7 weeks gestation who presents today for contractions. Contractions started last night and stopped then started again this morning. They occur every hour and last 5 minutes. She denies any vaginal bleeding or discharge. No gush or leaking of fluid. Positive movement. care with [facility]. History Past Medical History Narrative Medical Lupus Obstetric History Obstetric History s/p x 2, first for indication Spontaneous x 3 Past Surgical History Narrative Surgical x 2 Family History Family History: Negative Social History Alcohol Use: No Tobacco Use: Yes (1/2ppd) Substance Abuse: Yes (marijuana) Allergies-Medications (Allergen,Severity, Reaction): Coded Allergies: gabapentin (Unverified Adverse Reaction, Mild, Mouth Sores, 11/09/16) Per pt. Home Meds Reported Medications Vit W/ Docusate-Fe Fu ( 19)1 Tab Tab 09/20/16 Review of Systems Except as stated in HPI: all other systems reviewed are Neg General / Constitutional: No: Fever, Chills Eyes: No: Blurred Vision, Visual changes HENT: No: Headaches Cardiovascular: No: Chest Pain or Discomfort, Palpitations Respiratory: No: Short of Breath Gastrointestinal: No: Nausea, Vomiting Genitourinary: Pelvic Pain, No: Dysuria, Discharge, Vaginal Bleeding Musculoskeletal: No: Edema Neurologic: No: Headache Psychiatric: No: Substance Abuse Physical Exam Narrative GENERAL: Well-nourished, well-developed patient. SKIN: Warm and dry. HEAD: Normocephalic and atraumatic. EYES: No scleral icterus. No injection or drainage. ENT: No nasal drainage noted. Mucous membranes pink. Airway patent. NECK: Supple, trachea midline. No JVD. CARDIOVASCULAR: Regular rate and rhythm without murmurs, gallops, or rubs. RESPIRATORY: Breath sounds equal bilaterally. No accessory muscle use. ABDOMEN/GI: Abdomen soft, non-tender, bowel sounds present, no rebound, no guarding Gravid to 24 weeks size GENITOURINARY: External Genitalia: intact and normal in appearance BUS glands: normal Cervix: posterior Dilatation: 0 Effacement: 0 Station: -3 Presentation: vertex Membranes: intact Uterine Contractions: none FHT's: Category: I Baseline: 150 Reactive: + Variability: moderate Decels: none EXTREMITIES: No cyanosis or edema. BACK: Nontender without obvious deformity. No CVA tenderness. NEUROLOGICAL: Awake and alert. Motor and sensory grossly within normal limits. Normal speech. Data Data Vital Signs Reviewed: Yes Orders Vital Signs (Adult) .ON ADMISSION (11/09/16 12:42) ^ Labor Status (11/09/16 12:42) ^ Hydration (11/09/16 12:42) MDM Medical Record Reviewed: Yes Narrative Course / MDM 25 year old at 24-6/7 weeks gestation. 1. IUP- Category I tracing, reassuring. 2. Contractions- Will monitor FHT/toco. No contractions noted on monitor. labor ruled out. 3. Urine dip- large ketones, trace protein, large leuk esterase, positive nitrates. Consistent with acute cystitis. Will obtain UA and culture. Will treat with Macrobid 100mg PO Q12H x 7 days. eden Wilhelm Diagnosis Diagnosis: Primary Impression: Acute cystitis during Qualified Code: O23.12 - Acute cystitis during in second trimester Additional Impression: 28 weeks gestation of Disposition: DISCHARGE HOME Condition: Stable Scripts Nitrofurantoin Macrocrystal 100 Mg [id number] Mg PO QID #14 CAP Ref 0 Prov:Kimberly Ruelas MD, R3 11/09/16 Kimberly Ruelas MD, R3 Nov 09, 2016 12:47
[2016-11-09] MEDS ORDERED: NITR1CAP36 PO (12:53)
[2016-11-09 13:47] LABS: BACTERIA, URINE FEW /hpf; BLOOD, URINE NEG (NEG); COMMENT (UR) CULTURE INDICATED; CULTURE IF INDICATED CULTURE INDICATED; GLUCOSE,URINE NEG (NEG); KETONE, URINE 80 mg/dL (NEG); MUCUS URINE FEW /lpf (OCC); PH, URINE 7.5 (5.0-8.5); SQUAMOUS EPITHELIAL CELL URINE 6 /hpf (0-5); URINE COLOR YELLOW (YELLW/STRAW)
[2016-11-09 13:55] LABS: NITRITE,URINE POS (NEG)
== END 2016-11-09 13:21 | disposition home or self-care (01) ==
LOC: HOBED 12:18
DX: O23.12 Infections of bladder in pregnancy, second trimester (principal); Z3A.28 28 weeks gestation of pregnancy
CPT/HCPCS: 81001; 86403; 87077; 87086; 87186; 99283